=== PATIENT | female | born 1985 | race Caucasian/White ===

== ENCOUNTER 2018-08-22 11:44 | Emergency (ER) | payer OTHER ==
[~2018-08-22] VITALS: Ht 170.2 cm; Wt 83.9 kg
[2018-08-22 12:02] VITALS: Ht 170.2 cm; Wt 83.9 kg
[2018-08-22 13:03] VITALS: BP 128/90
== END 2018-08-22 13:03 | disposition home or self-care (01) ==
LOC: ED 11:44
DX: R21 Rash and other nonspecific skin eruption (principal); N83.209 Unspecified ovarian cyst, unspecified side

== ENCOUNTER 2019-02-06 07:48 | Emergency (ER) | payer OTHER ==
[~2019-02-06] VITALS: Ht 170.2 cm; Wt 83.5 kg
[2019-02-06 08:04] VITALS: Ht 170.2 cm; Wt 83.5 kg
[2019-02-06 11:12] VITALS: BP 107/63
== END 2019-02-06 11:12 | disposition home or self-care (01) ==
LOC: ED 07:48
DX: R05 Cough (principal)